=== PATIENT | female | born 1955 | race Caucasian/White ===

== ENCOUNTER 2017-01-13 11:11 | Emergency (ER) | payer MEDICARE, OTHER ==
--- NOTE | 2017-01-13 12:04 | ED Physician Chart ---
Chief Complaint/HPI - Patient Information Date Seen:: 01/13/17 Time Seen:: 11:25 Chief Complaint:: itchy rash History of Present Illness:: 24 hours of itchy rash that started as a few bumps on the left arm and is now on the abdomen and under the arms. Patient has no obvious environmental exposures, no foreign travel, no infectious disease symptoms, no new medications despite a lengthy interview with both the patient and her son. There is no involvement of the eyes, mouth, and no breathing difficulty. Allergies:: Allergies Allergy/AdvReac Type Severity Reaction Status Date / Time codeine Allergy Verified 02/14/16 14:01 iodine Allergy Verified 02/14/16 14:01 Sulfa (Sulfonamide Allergy Verified 02/14/16 14:01 Antibiotics) Vitals:: Vital Signs - 8 hr 01/13/17 11:22 Temp 97.5 F HR 79 RR 18 BP 176/94 O2 Sat % 99 Historian:: Patient, Family Member Review:: Nurse's Note Reviewed Review of Systems - Review of Systems General/Constitutional: Other (review of systems is completely unremarkable except for those findings mentioned in the chief complaint or history of present illness.) Past Medical History - Past Medical History Obtainable: Yes Past Medical History: HTN, Other (anxiety) Family Medical History - Family Member Mother History Unknown: Yes Hx Family Cancer: No Hx Family Hypertension: No Hx Family Stroke: No Physical Exam - Physical Examination General/Constitutional: Awake, Well-developed, well-nourished, Alert, No distress, GCS 15, Non-toxic appearing, Ambulatory Other Gen/Cons comments:: In general the patient is a 61-year-old thin female laying quietly on the gurney in no apparent distress. HEENT exam is normal with no evidence of stridor, mucous membrane involvement, and the scalp is clear. The neck is supple with full range of motion and no lymphadenopathy. Chest and cardiovascular exams are entirely normal. The only pertinent physical findings are in the skin which is remarkable for scattered, maculopapular, red, nonblanching, 2-3 mm circular lesions scattered in an uncharacteristic pattern on the left arm, bilateral axillae, and anterior abdomen,. The patient describes these lesions as pruritic. She states that they improve after the application of cortisone for short time. Assessment - Assessment General Assessment: Medical decision making: Patient with scattered, pruritic, red skin lesions without any other symptoms may have infectious, allergic, autoimmune, or psychogenic etiology. History and physical suggests that this is most likely a an environmental exposure of some kind despite no obvious new exposure. All aspects of this were explained to the patient and the son, and they understand that this may get worse and the patient may need emergency room evaluation if I , mouth, or long involvement should ensue. It is safe to continue using the cortisone skin preparation. ED Septic Shock - . Is Septic Shock (SBP<90, OR Lactate>4 mmol\L) present?: No - <6hrs of presentation: Vital Signs: Vital Signs - 8 hr 01/13/17 11:22 Temp 97.5 F HR 79 RR 18 BP 176/94 O2 Sat % 99 Reassessment (Disposition) - Reassessment Reassessment Condition:: Unchanged - Diagnosis Diagnosis:: #1. Skin rash, suspect related to environmental exposure. - Aftercare/Follow up Instructions Aftercare/Follow-Up Instructions:: Counseled pt regarding lab results/diagnosis & need follow up, Refer to Discharge Instructions - Patient Disposition Discharge/Transfer:: Home Condition at Disposition:: Unchanged ED Discharge Plan - Patient Disposition Admit/Discharge/Transfer: PT DISCHARGED HOME Condition at Disposition: Stable Instructions: Allergies, [id number]
== END 2017-01-13 11:52 | disposition home or self-care (01) ==
LOC: ER 11:11
DX: R21 Rash and other nonspecific skin eruption (principal); I10 Essential (primary) hypertension; Z88.6 Allergy status to analgesic agent; Z88.2 Allergy status to sulfonamides; Z91.041 Radiographic dye allergy status
CPT/HCPCS: Z7502

== ENCOUNTER 2017-04-06 13:04 | Emergency (ER) | payer MEDICARE, OTHER ==
--- NOTE | 2017-04-06 14:31 | ED Physician Chart ---
Chief Complaint/HPI - Patient Information Date Seen:: 04/06/17 Time Seen:: 13:13 Chief Complaint:: Pt has noticed a painful area in left upper chest for 2 days. History of Present Illness:: Pt came in by private auto because pt has noticed a painful area in left upper chest for 2 days. No known h/o injury or trauma to left chest. Pain can be aggravated with deep inspiration or palpation. No fever. Taking po well without N/V/D. No dyspnea or cough. Allergies:: Allergies Allergy/AdvReac Type Severity Reaction Status Date / Time codeine Allergy Verified 02/14/16 14:01 iodine Allergy Verified 02/14/16 14:01 Sulfa (Sulfonamide Allergy Verified 02/14/16 14:01 Antibiotics) Vitals:: Vital Signs - 8 hr 04/06/17 04/06/17 04/06/17 13:18 14:11 14:21 Temp 98.2 F HR 71 79 RR 16 18 16 BP 149/101 99/52 O2 Sat % 97 99 Historian:: Patient Family MD/PCP:: Dr. Arana LMP:: Postmenopausal Review:: Nurse's Note Reviewed Review of Systems - Review of Systems General/Constitutional: No fever, No chills, No weight loss, No weakness, No edema, Loss of appetite (?) Skin: No skin lesions, No rash, No bruising Head: No headache Eyes: No loss of vision, No pain, No diplopia ENT: No nasal drainage, No sore throat Neck: No neck pain, No swelling, No thyromegaly, No stiffness Cardio Vascular: No chest pain, No palpitations, No edema Pulmonary: No SOB, No cough, No wheezing GI: No nausea, No vomiting, No diarrhea, No pain G/U: No dysuria, No frequency, No hematuria Musculoskeletal: No back pain, No muscle pain, Other (Chest wall pain.) Psychiatric: No prior psych history, No depression, No anxiety Hematopoietic: No bruising, No lymphadenopathy Neurological: No syncope, No focal symptoms, No weakness, No paresthesia, No headache, No confusion ( ) Past Medical History - Past Medical History Past Medical History: HTN Family History: Diabetes Melitus (mother), HTN (Mother.), Cancer (father and all grandparents.) Social History: Smoker (half pack daily. Pt has been informed about health risks associated chronic tobacco use and has been advised to quit. Pt has been encouraged to enroll in a smoking cessation program. Pt acknowledges understanding.), No Alcohol, No Drug Use, , Other (lives with her son.) Employment:: Retired. Surgical History: (about 40 years ago.) Psychiatricy History: Other (h/o anxiety disorder.) Medication: Reviewed Family Medical History - Family Member Mother History Unknown: Yes Hx Family Cancer: No Hx Family Coronary Artery Disease: No Hx Family Hypertension: No Hx Family Stroke: No Hx Family Diabetes: No Hx Family Seizures: No Hx Family Dementia: No Hx Family HIV: No Hx Family COPD: No Hx Family Hepatitis: No Physical Exam - Physical Examination General/Constitutional: Awake, Well-developed, well-nourished, Alert, No distress, GCS 15, Non-toxic appearing, Ambulatory Other Gen/Cons comments:: Breathes comfortably, speaks clearly, interacts normally, and ambulates without difficulty. Head: Atraumatic Eyes: Lids, conjuctiva normal, PERRL, EOMI Skin: Nl inspection, No rash, No ecchymosis, Well hydrated, No lymphadenopathy ENMT: External ears, nose nl, Nasal exam nl, Oropharynx nl Neck: Nontender, Full ROM w/o pain, No JVD, No nuchal rigidity, No mass, No stridor Respiratory: Nl effort/Exclusion, Clear to Auscultation, No Wheeze/Rhonchi/Rales Other Respiratory comments:: Chest: Tenderness with palpation at L upper chest on mid 3rd rib region. ? trace swelling. No palpable mass. No erythema, ecchymosis, open wound, or crepitus. Pt states that it is exactly the same pain that she has experienced. Cardio Vascular: RRR, No murmur, gallop, rubs GI: No tenderness/rebounding/guarding, No organomegaly, Normal BS's, Nondistended, No mass/bruits Extremities: No edema Neuro/Psych: Alert/oriented (oriented x 3.), Judgement/insight normal, Mood normal, Normal gait, No focal deficits Labs/Radiology/EKG Results - Lab Results Results: Laboratory Tests 04/06/17 04/06/17 04/06/17 14:54 14:54 14:54 WBC 8.9 D RBC 4.72 Hgb 14.4 Hct 42.2 MCV 89.5 MCH 30.5 MCHC Differential 34.1 RDW 14.0 Plt Count 241 MPV 9.0 Neutrophils % 61.8 Lymphocytes % 29.4 Monocytes % 4.6 Eosinophils % 1.6 Basophils % 2.6 H PT 10.6 INR 1.02 PTT (Actin FS) 32.1 Sodium 133 L Potassium 3.7 Chloride 102 Carbon Dioxide 26.6 Anion Gap 8.1 BUN 7 Creatinine 0.8 Est GFR ( Amer) > 60.0 Est GFR (Non-Af Amer) > 60.0 BUN/Creatinine Ratio 8.8 Glucose 101 Calcium 9.8 - Radiology Results Results: Chest CT without contrast: Emphysematous changes. No consolidation. Mild ASVD. Official reading per Dr. Faustino Boss, radiologist. ED Septic Shock - . Is Septic Shock (SBP<90, OR Lactate>4 mmol\L) present?: No - <6hrs of presentation: Vital Signs: Vital Signs - 8 hr 04/06/17 04/06/17 04/06/17 13:18 14:11 14:21 Temp 98.2 F HR 71 79 RR 16 18 16 BP 149/101 99/52 O2 Sat % 97 99 Reassessment (Disposition) - Reassessment Reassessment:: 1555 Pt has been repeatedly evaluated. Pt is now very comfortable and does not need more pain control. Awaiting chest CT. 1755 Pt remains comfortable. Chest CT report just became available. Lab and CT findings have been reviewed with pt. Pt requests to go home now and does not want further observation/management in hospital. Aftercare instructions have been given. Reassessment Condition:: Improved - Diagnosis Diagnosis:: Chest wall pain. Consider chest wall contusion from poor sleep posture. Stable and much improved. - Aftercare/Follow up Instructions Aftercare/Follow-Up Instructions:: Refer to Discharge Instructions Notes:: Continue present care. Avoid activities that increase chest wall motion. May take Motrin 200 mg tab 3 tabs po q8h prn for musculoskeletal pain, not to take first dose at least 6 hours after Toradol was given here. F/U with PCP Dr. Arana in one day for recheck. Return to ER immediately if condition worsens or if any further questions/problems. Medication Prescribed:: None - Patient Disposition Discharge/Transfer:: Home Time:: 18:00 Condition at Disposition:: Stable, Improved
[2017-04-06 15:05] LABS: % BASOPHILS 2.6 % (0.0-2.0); % EOSINOPHILS 1.6 % (0.0-5.0); % LYMPHOCYTES 29.4 % (20.0-50.0); % MONOCYTES 4.6 % (2.0-10.0); % NEUTROPHILS 61.8 % (40.0-80.0); HEMATOCRIT 42.2 % (35.0-45.0); HEMOGLOBIN 14.4 gm/dL (11.7-15.5); MEAN CELL VOLUME 89.5 fl (81-100); MEAN CORPUSCULAR HEMOGLOBIN 30.5 pg (27.0-31.0); MEAN CORPUSCULAR HGB CONC 34.1 pg (28.0-36.0); NEUTROPHILE ABSOLUTE 5.6 Th/cmm (1.8-8.0); PLATELET COUNT 241 Th/cmm (150-400); RED BLOOD COUNT 4.72 Mil/cmm (3.80-5.10)
[2017-04-06 15:06] LABS: WHITE BLOOD COUNT 8.9 Th/cmm (4.8-10.8)
[2017-04-06 15:15] LABS: INR 1.02 (0.5-1.4); PROTHROMBIN TIME (TEST) 10.6 SECONDS (9.5-11.5)
[2017-04-06 15:19] LABS: ANION GAP 8.1 (7.0-16.0); BUN - UREA NITROGEN 7 mg/dL (7-25); BUN/CREATININE RATIO 8.8; CALCIUM SERUM 9.8 mg/dL (8.6-10.3); CARBON DIOXIDE 26.6 mEq/L (21.0-31.0); CHLORIDE 102 mEq/L (98-107); CREATININE - SERUM 0.8 mg/dL (0.6-1.2); GLUCOSE 101 mg/dL (70-105); POTASSIUM SERUM 3.7 mEq/L (3.5-5.1); SODIUM SERUM 133 mEq/L (136-145)
--- NOTE | 2017-04-07 08:27 | Diagnostic Imaging Report ---
Exam: CT examination of chest. HISTORY: Tender induration of the left upper chest Total DLP equals 128 CTDI equals 3.5 Findings: Multiple contiguous thin section of the chest were obtained from thoracic outlet to the upper abdomen without the administration of contrast material therefore the study somewhat limited. The study demonstrates normal appearance of the great vessels of the neck. Adenopathy is difficult to exclude due to lack of the contrast material. Mediastinal structures midline. No abnormal adenopathy is noted. The lung parenchyma is well aerated. Mild hyper aeration bilaterally appreciated. Mild atherosclerotic calcification of aorta appreciated. Bony thorax is intact. The upper abdomen is normal. IMPRESSION: Mild hyperaeration bilaterally no acute disease.
== END 2017-04-06 18:00 | disposition home or self-care (01) ==
LOC: ER 13:04
DX: R07.89 Other chest pain (principal); I10 Essential (primary) hypertension; F17.200 Nicotine dependence, unspecified, uncomplicated
CPT/HCPCS: 99285; 96374; 71250; 36415; 85025; 85610; 80048; J1885